=== PATIENT | male | born 1990 | race Caucasian/White ===

== ENCOUNTER 2021-09-14 17:54 | Outpatient (CLI) | payer SELFPAY ==
[2021-09-14 18:51] LABS: Anion Gap 14.1 (5-19); Blood Urea Nitrogen 5 mg/dL (6-20); Calcium 9.3 mg/dL (8.5-10.5); Carbon Dioxide 28 mmol/L (22-29); Chloride 102 mmol/L (98-107); Glomerular Filtration Rate 131.5 mL/min (90-130); Glucose 127 mg/dL (65-115); Magnesium 1.9 mg/dL (1.7-2.3); Osmolality Calculated 291 mOsm/kg (285-295); Phosphorus 2.4 mg/dL (2.5-4.5); Potassium 3.1 mmol/L (3.5-5.1); Sodium 141 mmol/L (136-145)
== END 2021-09-14 17:55 | disposition home or self-care (01) ==
LOC: LAB 17:57
PROVIDERS: PCP Family Medicine; Visit Provider Family Medicine
DX: R25.2 Cramp and spasm (principal)
CPT/HCPCS: 80048; 83735; 84100

== ENCOUNTER → 2021-09-29 11:35 | Outpatient (BNVA) | payer OTHER, SELFPAY | PROVIDERS: PCP Family Medicine; Visit Provider Family Medicine | DX: Z20.822 Contact with and (suspected) exposure to COVID-19; R05.9 Cough, unspecified | CPT/HCPCS: 87635 ==

== ENCOUNTER → 2021-10-13 16:34 | Outpatient (BNVA) | payer OTHER, SELFPAY | PROVIDERS: PCP Family Medicine; Visit Provider Family Medicine | DX: M25.571 Pain in right ankle and joints of right foot (principal); E83.39 Other disorders of phosphorus metabolism; E87.6 Hypokalemia; G62.9 Polyneuropathy, unspecified | CPT/HCPCS: 73600 ==

== ENCOUNTER → 2021-10-20 11:39 | Outpatient (BNVA) | payer OTHER, SELFPAY | PROVIDERS: PCP Family Medicine; Visit Provider Nurse Practitioner Family | DX: E87.6 Hypokalemia (principal); E83.39 Other disorders of phosphorus metabolism | CPT/HCPCS: 82043; 82340; 82436; 82530; 82570; 83735; 84105; 84133; 84156; 84300; 84540; 85999 ==

== ENCOUNTER → 2021-11-10 16:33 | Outpatient (BNVA) | payer OTHER, SELFPAY | PROVIDERS: PCP Family Medicine; Visit Provider Family Medicine | DX: R30.0 Dysuria (principal) | CPT/HCPCS: 81000; 87491; 87591 ==

== ENCOUNTER → 2021-12-17 09:16 | Outpatient (BNVA) | payer OTHER, SELFPAY | PROVIDERS: PCP Family Medicine; Visit Provider Nurse Practitioner Family | DX: E55.9 Vitamin D deficiency, unspecified (principal); E83.39 Other disorders of phosphorus metabolism; R25.2 Cramp and spasm; Z13.6 Encounter for screening for cardiovascular disorders; Z79.899 Other long term (current) drug therapy; G62.9 Polyneuropathy, unspecified; R36.9 Urethral discharge, unspecified; Z20.2 Contact with and (suspected) exposure to infections with a predominantly sexual mode of transmission; R30.0 Dysuria; E87.6 Hypokalemia | CPT/HCPCS: 80053; 80061; 82306; 83036; 83735; 84100; 84439; 84443; 86592; 86705; 86706; 86709; 86803; 87340; 87491; 87591; 87661; 87806 ==

== ENCOUNTER → 2022-01-27 15:34 | Outpatient (BNVA) | payer OTHER, SELFPAY | PROVIDERS: PCP Family Medicine; Visit Provider Internal Medicine Nephrology | DX: E87.6 Hypokalemia (principal) | CPT/HCPCS: 80069; 83735 ==

== ENCOUNTER → 2022-02-12 11:14 | Outpatient (BNVA) | payer OTHER, SELFPAY | PROVIDERS: PCP Family Medicine; Visit Provider Internal Medicine Nephrology | DX: E87.6 Hypokalemia (principal) | CPT/HCPCS: 80069; 83735 ==

== ENCOUNTER → 2022-03-03 10:03 | Outpatient (BNVA) | payer OTHER, SELFPAY | PROVIDERS: PCP Family Medicine; Visit Provider Nurse Practitioner | DX: R07.9 Chest pain, unspecified (principal); E83.39 Other disorders of phosphorus metabolism; E87.6 Hypokalemia; E78.2 Mixed hyperlipidemia | CPT/HCPCS: 80048; 84443 ==

== ENCOUNTER → 2022-03-08 09:35 | Outpatient (BNVA) | payer OTHER, SELFPAY | PROVIDERS: PCP Family Medicine; Visit Provider Internal Medicine Nephrology | DX: E87.6 Hypokalemia (principal) | CPT/HCPCS: 80048 ==

== ENCOUNTER 2022-03-29 12:57 | Outpatient (CLI) | payer OTHER, SELFPAY ==
--- NOTE | 2022-03-29 13:30 | USCV_ITS ---
[facility] [place] Age: 31 Gender: M : 1990 Exam Date: 03/29/2022 13:16 Ordering Phys: Soni RushingP WAGON W[employer]ER Technologist: Miranda Pacheco Exam Location: [facility] [place]_ Indication: CHEST PAIN BP: / HR: 76 Rhythm: Sinus Technical Quality: Adequate MEASUREMENTS (Male / Female) Normal Values 2D ECHO LV Diastolic Diameter PLAX 4.1 cm 4.2 - 5.9 / 3.9 - 5.3 cm LV Systolic Diameter PLAX 2.8 cm LV Chamber Size 3.4 cm IVS Diastolic Thickness 1.2 cm 0.6 - 1.0 / 0.6 - 0.9 cm IVS Systolic Thickness 1.5 cm LVPW Diastolic Thickness 1.1 cm 0.6 - 1.0 / 0.6 - 0.9 cm LVPW Systolic Thickness 1.3 cm RV Chamber Size 2.4 cm LVOT Diameter 2.0 cm LV Ejection Fraction 2D Teich 59.5 % LV Ejection Fraction MOD 2C 61.6 % LV Ejection Fraction 2C AL 62.4 % LA Diameter 2.8 cm LA Width 2.8 cm LA Height 2.6 cm RA Width 3.2 cm RA Height 3.5 cm Aorta at Sinotubular Diameter 2.4 cm IVC Diameter 1.3 cm M-MODE Aortic Annulus Diameter 3.1 cm LA Ao Ratio MM 1.1 MV E Point Septal Separation 0.1 cm DOPPLER AV Peak Velocity 125.0 cm/s LVOT Peak Velocity 106.0 cm/s AV Area Cont Eq vti 2.1 cm squared AV Area Cont Eq pk 2.7 cm squared MV Area PHT 3.5 cm squared Mitral E to A Ratio 1.3 MV E' Velocity 52.5 cm/s Mitral E to MV E' Ratio 5.1 Mitral E to LV E' Lateral Ratio 4.8 Mitral E to LV E' Septal Ratio 5.5 TR Peak Velocity 183.7 cm/s TR Peak Gradient 13.5 mmHg TR Mean Velocity 135.0 cm/s TR Mean Gradient 8.4 mmHg TR Velocity Time Integral 45.1 cm TV Peak E Velocity 74.0 cm/s Right Atrial Pressure 3.0 mmHg Pulmonary Artery Systolic Pressu 16.5 mmHg PV Peak Velocity 83.0 cm/s RV Acceleration Time 0.2 s RV Ejection Time 0.3 s RV AcT/ET 0.5 FINDINGS Left Ventricle Normal left ventricular size. LV systolic function is normal with EF of 55-60%. No regional wall motion abnormalities. Normal diastolic filling pattern. Right Ventricle The right ventricle is normal in size and function. Right Atrium The right atrium is normal in size. Left Atrium The left atrium is normal in size. Mitral Valve Structurally normal mitral valve without significant stenosis or prolapse. There is no mitral regurgitation. Aortic Valve Structurally normal aortic valve without significant sclerosis or stenosis. There is no aortic regurgitation. Tricuspid Valve Structurally normal tricuspid valve without significant stenosis. Trace tricuspid regurgitation. Insufficient TR jet to calculate RVSP. Pulmonic Valve Structurally normal pulmonic valve without significant stenosis. There is no pulmonic regurgitation. Pericardium Normal pericardium without effusion. Aorta Normal ascending aorta dimension. CONCLUSIONS LV systolic function is normal with EF of 60 to 65%. Normal diastolic function. Trace tricuspid regurgitation. No comparison studies are available Sami Palafox MD (Electronically Signed) Final Date: 04 Apr 2022 12:24 S
== END 2022-03-29 12:58 | disposition home or self-care (01) ==
PROVIDERS: PCP Family Medicine; Visit Provider Nurse Practitioner
DX: I07.1 Rheumatic tricuspid insufficiency (principal); R07.9 Chest pain, unspecified
CPT/HCPCS: 93306

== ENCOUNTER → 2022-08-03 10:11 | Outpatient (BNVA) | payer SELFPAY | PROVIDERS: PCP Family Medicine; Visit Provider Internal Medicine Nephrology | DX: E87.6 Hypokalemia (principal) | CPT/HCPCS: 80069; 82043; 83735 ==

== ENCOUNTER → 2022-08-04 11:03 | Outpatient (BNVA) | payer SELFPAY | PROVIDERS: PCP Family Medicine; Visit Provider Internal Medicine Nephrology | DX: E55.9 Vitamin D deficiency, unspecified (principal) | CPT/HCPCS: 82306 ==

== ENCOUNTER → 2022-11-04 11:10 | Outpatient (BNVA) | payer SELFPAY | PROVIDERS: PCP Family Medicine; Visit Provider Nurse Practitioner | DX: E87.6 Hypokalemia (principal) | CPT/HCPCS: 80053; 85025 ==

== ENCOUNTER → 2023-02-03 10:43 | Outpatient (BNVA) | payer SELFPAY | PROVIDERS: PCP Family Medicine; Visit Provider Internal Medicine Nephrology | DX: E87.6 Hypokalemia (principal); E83.52 Hypercalcemia | CPT/HCPCS: 80069; 82306 ==

== ENCOUNTER → 2023-02-09 10:52 | Outpatient (BNVA) | payer SELFPAY | PROVIDERS: PCP Family Medicine; Visit Provider Registered Nurse | DX: E83.39 Other disorders of phosphorus metabolism (principal); E87.6 Hypokalemia | CPT/HCPCS: 82542 ==

== ENCOUNTER → 2023-03-03 11:49 | Outpatient (BNVA) | payer SELFPAY | PROVIDERS: PCP Family Medicine; Visit Provider Internal Medicine Nephrology | DX: E87.6 Hypokalemia (principal); E83.30 Disorder of phosphorus metabolism, unspecified; E83.52 Hypercalcemia; R25.2 Cramp and spasm | CPT/HCPCS: 80069; 81000; 83735; 87077; 87086; 87184 ==

== ENCOUNTER → 2023-05-19 09:09 | Outpatient (BNVA) | payer SELFPAY | PROVIDERS: PCP Family Medicine; Visit Provider Nurse Practitioner | DX: R50.9 Fever, unspecified (principal); J06.9 Acute upper respiratory infection, unspecified; I88.9 Nonspecific lymphadenitis, unspecified | CPT/HCPCS: 87880 ==

== ENCOUNTER 2023-09-14 05:16 | Emergency (ER) | payer SELFPAY ==
[2023-09-14 05:25] VITALS: BP 134/79; PULSE 91; RESP 18; TEMP 36.7; O2SAT 99; BMI 24.1
--- NOTE | 2023-09-14 05:31 | W.ED.MALEGU ---
HPI - Male Genitourinary General: Chief complaint: Urogenital-Male Stated complaint: blood in urine Time Seen by Provider: 09/14/23 05:24 History of Present Illness: Patient presents to the ER with pain burning and frequency of urination. The symptoms started onMonday. patient thought they did go away but they did not. Patient did notice some blood in his urine when he urinated this morning. Patient does have a history of bladder infections. Patient does not have any flank pain. And the pain does not radiate. Patient also has frequency and urgency. Review of Systems General: Reports: 10 or more systems reviewed and unremarkable except in HPI and below PFSH ED PFSH: Medical History Abnormal penile discharge Asthma Asthma symptoms as a child Epilepsy Last seizure was at age 12 Hypertension screen Medication management Mixed hyperlipidemia Vitamin D deficiency Surgical History History of umbilical hernia repair Family History Mother Hypertension Father Hypertension Social History Smoking and tobacco/nicotine status: current every day tobacco/nicotine user Alcohol intake: never Substance/Drug Use: never Physical Exam Const: COMMON NORMALS: no acute distress, average body habitus, patient oriented x3, no limitations, healthy appearing, alert and well nourished Neck/C-Spine: COMMON NORMALS: no JVD Chest: COMMONS NORMALS: normal inspection of the chest and normal palpation of entire chest wall Resp: COMMON NORMALS: normal respiratory effort, No retractions, No use of accessory muscles and clear to auscultation bilaterally AUSCULTATION: clear to auscultation bilaterally Cardio: COMMON NORMALS: no JVD, regular rate, regular rhythm, S1 normal heart sound present, S2 normal heart sound present, No gallops present (Cardio), No clicks present (Cardio), No murmurs present (Cardio) and No rub (Cardio) RATE: regular rate RHYTHM: regular rhythm HEART SOUNDS: S1 normal heart sound present and S2 normal heart sound present GI: COMMON NORMALS: Normal to inspection, nondistended, normoactive bowel sounds present, Soft to palpation, non-tender, No hepatosplenomegaly present and no masses PALPATION: Yes Soft to palpation and Yes No hepatosplenomegaly present Neuro: COMMON NORMALS: patient oriented x3 SENSORIUM/ORIENTATION: Yes alert Course Vital Signs: Vital signs: Vital Signs Temperature 98.1 F 09/14/23 05:25 Pulse Rate 91 09/14/23 05:25 Respiratory Rate 18 09/14/23 05:25 Blood Pressure 134/79 09/14/23 05:25 Pulse Oximetry 99 09/14/23 05:25 MDM - Male Medical Decision Making urinalysis was obtained which showed urinary tract infection. Patient be placed on ciprofloxacin. Patient is to follow-up with his PCP in approximately 7 days or sooner as needed. Differential Diagnosis Likely urinary tract infection; Unlikely priapism, urethritis, epididymitis, genital herpes simplex, prostatitis, acute retention of urine or inguinal hernia Medical Records I reviewed the patient's medical records. Lab Data I reviewed the patient's lab results. Laboratory Results Urine Color Tamy (Yellow) 09/14/23 05:30 Urine Appearance Hazy (CLEAR) A 09/14/23 05:30 Urine pH 5 (5-7) 09/14/23 05:30 Ur Specific [place] 1.007 (1.005-1.030) 09/14/23 05:30 Urine Protein 2+ (Negative) H 09/14/23 05:30 Urine Glucose (UA) Norm (Normal) 09/14/23 05:30 Urine Ketones Negative (Negative) 09/14/23 05:30 Urine Blood 3+ (Negative) H 09/14/23 05:30 Urine Nitrate Positive (Negative) H 09/14/23 05:30 Urine Bilirubin Neg (Negative) 09/14/23 05:30 Urine Urobilinogen Neg mg/dL (Negative) 09/14/23 05:30 Ur Leukocyte Esterase 2+ (Negative) H 09/14/23 05:30 Urine RBC 15-25 /hpf (0-2) H 09/14/23 05:30 Urine WBC 55-80 /hpf (0-5) H 09/14/23 05:30 Ur Squamous Epith Cells None /hpf (0-5) 09/14/23 05:30 Amorphous Sediment Not Reportable 09/14/23 05:30 Urine Bacteria 1+ /hpf (NONE) H 09/14/23 05:30 No radiology studies performed this visit Discharge Plan Discharge Patient Disposition: Home Clinical Impression: Urinary tract infection Qualifiers: Urinary tract infection type: acute cystitis Hematuria presence: with hematuria Qualified Code(s): N30.01 - Acute cystitis with hematuria Condition: Stable Prescriptions: New ciprofloxacin HCl 500 mg tablet 500 mg PO Q12H Qty: 14 0RF No Action aspirin 81 mg tablet,delayed release (DR/EC) 81 mg PO DAILY 30 Days Qty: 30 1RF nitroglycerin 0.4 mg tablet, sublingual 0.4 mg sublingual Q5M PRN (Reason: chest pain) Qty: 30 1RF Rx Instructions: until response; do not exceed 3 doses per episode amiloride 5 mg tablet 5 mg PO DAILY cholecalciferol (vitamin D3) 1,250 mcg (50,000 unit) capsule 50,000 unit PO .monthly Descovy 120-15 mg tablet PO rosuvastatin [Crestor] 5 mg tablet 5 mg PO DAILY Qty: 90 3RF azithromycin 250 mg tablet See Rx Instructions PO .COMPLEX Qty: 6 0RF Rx Instructions: For 250 mg dose pack: take 500 mg today (day 1), then 250 mg for 4 days (days 2-5) PO sulfamethoxazole-trimethoprim [Bactrim DS] 800-160 mg tablet 1 tab PO Q12H Qty: 6 0RF Discharge Orders: Discharge ED (Routine); Ordered 09/14/23 Ordered By: Kei Lehman Referrals: Amari Solares MD [Primary Care Provider] - Patient Instructions: Urinary Tract Infection in Men (ED) Coding Level of Care Code ED [employer] Hand for Opal Archibald
[2023-09-14 05:45] LABS: Add Urine Microscopic? YES; Bilirubin Urine Neg (Negative); Blood Urine 3+ (Negative); Glucose Urine UA Norm (Normal); Ketones Urine Negative (Negative); Leukocyte Esterase Urine 2+ (Negative); Nitrate Urine Positive (Negative); Protein Urine 2+ (Negative); Specific Gravity, Urine 1.007 (1.005-1.030); Urine Appearance Hazy (CLEAR); Urine Color Amber (Yellow); Urobilinogen Urine Neg (Negative); pH Urine 5 (5-7)
[2023-09-14 05:46] LABS: Add Urine Culture? Yes; Bacteria Urine 1+ /hpf; RBC Urine 15-25 /hpf (0-2); WBC Urine 55-80 /hpf (0-5)
[2023-09-14 06:01] VITALS: BP 134/79; PULSE 91; RESP 18; TEMP 36.7; O2SAT 99
== END 2023-09-14 06:04 | disposition home or self-care (01) ==
PROVIDERS: Emergency Provider Emergency Medicine; PCP Family Medicine
DX: N30.01 Acute cystitis with hematuria (principal); Z79.82 Long term (current) use of aspirin; E78.2 Mixed hyperlipidemia; Z72.0 Tobacco use
CPT/HCPCS: 81001; 87077; 87086; 87186; 99283

== ENCOUNTER 2025-01-03 09:33 | Outpatient (CLI) | payer OTHER, SELFPAY ==
[2025-01-03 10:12] LABS: Hematocrit 44.2 % (37-53); Mean Corpuscular HGB Conc 34.6 g/dL (30-55); Mean Corpuscular Hemoglobin 31.9 pg (27-33); Mean Corpuscular Volume 92.1 fl (82-101); Mean Platelet Volume 10.8 fL (7.4-10.4); Platelet Count 309 10^3/cmm (157-399); Red Cell Distribution Width 12.7 % (12.1-15.1); White Blood Count 12.89 10^3/uL (3.29-11.43)
[2025-01-03 10:38] LABS: Estmated Average Glucose 117; Hemoglobin A1C 5.7 % (4.0-6.0)
[2025-01-03 10:46] LABS: HIV 1 & 2 Antibody Non-Reactive (Non-Reactiv); HIV 1 & 2 Antigen Non-Reactive (Non-Reactiv)
[2025-01-03 10:48] LABS: Carcinoembryonic Antigen 3.1 ng/mL (0.0-4.7); Cortisol Random 15.58 ug/dL (2.47-19.5); T3 Free 3.6 PG/ML (2.0-4.4); Testosterone Total 801.1 ng/dL (249-836)
[2025-01-03 10:53] LABS: Hepatitis A Antibody IgM Non-Reactive (Nonreactive); Hepatitis B Core IgM Non-Reactive (Nonreactive); Hepatitis B Surface Antigen Non-Reactive (Nonreactive); Hepatitis C Virus Antibody Non-Reactive (Nonreactive)
[2025-01-03 10:54] LABS: Rapid Plasma Reagin Syphilis Nonreactive (Nonreactive)
[2025-01-03 10:59] LABS: Alanine Aminotransferase 11 U/L (0-41); Albumin Level 4.7 g/dL (3.5-5.2); Alkaline Phosphatase 118 U/L (40-130); Anion Gap 16.5 (5-19); Aspartate Amino Transferase 16 U/L (0-40); Blood Urea Nitrogen 5 mg/dL (6-20); Calcium 9.8 mg/dL (8.5-10.5); Carbon Dioxide 29 mmol/L (22-29); Chloride 99 mmol/L (98-107); Chol HDL Ratio 3.77 mg/dL (1.0-5.00); Cholesterol 166 mg/dL (0-200); Globulin 3.4 g/dL (1.3-4.6); Glomerular Filtration Rate 129.1 mL/min (90-130); Glucose 73 mg/dL (65-115); HDL Cholesterol 44 mg/dL (60-100); LDL Cholesterol Calculated 100 mg/dL (50-129); LDL HDL Ratio 2.27 RATIO (0.00-3.22); Osmolality Calculated 288 mOsm/kg (285-295); Potassium 3.5 mmol/L (3.5-5.1); Sodium 141 mmol/L (136-145); Total Bilirubin 0.5 mg/dL (0.15-1.2); Total Protein 8.1 g/dL (6.6-8.7); Triglycerides 110 mg/dL (0-150)
[2025-01-03 11:01] LABS: Total Cells Counted 100 (0-100)
[2025-01-03 11:06] LABS: Absolute Segmented Neutrophil 8.5 10/cmm (1.6-7.1); Eosinophils 0 %; Lymphocytes 30 %; Monocytes Absolute 0.4 10^3/cmm (0.1-0.6); Segmented Neutrophils 66 %
[2025-01-03 11:07] LABS: Absolute Neutrophil 8.5 10^3/cmm (1.4-6.5); Giant Platelets Trace; Platelet Estimate Normal (Normal)
[2025-01-03 11:38] LABS: 25 Hydroxy Vitamin D 28 ng/mL (30-100); Estradiol 31.2 pg/mL (7.63-42.6); Homocysteine 20.33 umol/l (0-15); Iron 122 ug/dL (59-158); Luteinizing Hormone 8.3 mIU/mL (1.7-8.6)
[2025-01-03 11:56] LABS: Trichomonas vaginalis (PCR) NOT DETECTED
[2025-01-04 10:19] LABS: Dehydroepiandrosterone Sulfate 128 mcg/dL (93-415)
[2025-01-04 11:04] LABS: T4 Total 7.7 mcg/dL (4.9-10.5)
[2025-01-05 04:30] LABS: Sex Hormone Binding Globulin 66 nmol/L (10-50)
== END 2025-01-03 09:34 | disposition home or self-care (01) ==
LOC: LAB 09:36
PROVIDERS: PCP Family Medicine; Visit Provider Nurse Practitioner Family
DX: E34.9 Endocrine disorder, unspecified (principal); E78.2 Mixed hyperlipidemia; E55.9 Vitamin D deficiency, unspecified; Z79.899 Other long term (current) drug therapy; Z20.2 Contact with and (suspected) exposure to infections with a predominantly sexual mode of transmission
CPT/HCPCS: 36415; 80053; 80061; 80074; 82306; 82378; 82533; 82627; 82670; 83001; 83002; 83036; 83090; 83540; 84270; 84402; 84403; 84436; 84443; 84481; 85007; 85027; 86376; 86592; 87661; 87806; G0103

== ENCOUNTER → 2025-01-16 10:36 | Outpatient (BNVA) | payer OTHER, SELFPAY | PROVIDERS: PCP Nurse Practitioner Family; Visit Provider Nurse Practitioner Family | DX: E29.1 Testicular hypofunction (principal); Z79.899 Other long term (current) drug therapy; Z01.89 Encounter for other specified special examinations | CPT/HCPCS: 86376 ==